=== PATIENT | female | born 1945 | race Caucasian/White ===

== ENCOUNTER → 2017-07-01 | Outpatient (CLI) | payer OTHER | LOC: FIMAGING 16:15 | PROVIDERS: ATTEND Obstetrics & Gynecology | DX: Z12.31 Encounter for screening mammogram for malignant neoplasm of breast (principal) | CPT/HCPCS: G0202 ==

== ENCOUNTER → 2018-07-02 | Outpatient (CLI) | payer OTHER | LOC: FIMAGING 15:58 | PROVIDERS: ATTEND Internal Medicine | DX: Z12.31 Encounter for screening mammogram for malignant neoplasm of breast (principal) ==

== ENCOUNTER → 2019-01-27 | Outpatient (CLI) | payer OTHER | LOC: FIMAGING 16:29 | PROVIDERS: ATTEND Internal Medicine | DX: R79.89 Other specified abnormal findings of blood chemistry (principal) ==